=== PATIENT | female | born 2000 | race Caucasian/White ===

== ENCOUNTER 2020-09-13 20:36 | Emergency (ER) | payer OTHER ==
[2020-09-13 20:41] VITALS: BP 140/89
--- NOTE | 2020-09-13 20:54 | ED Physician Documentation ---
History of Present Illness - Stated complaint Stated Complaint: FEMALE /HEADACHE/BLOOD IN URINE - Chief complaint Chief Complaint: UTI - Additonal information Additional information: 20-year-old female presents emergency department for evaluation of suspected urinary tract infection. Reports that for nearly 2 days now she has had some mild discomfort when urinating and feels like she does not fully empty her bladder. Stated that 2 days ago (before she started her menses) she noted that there were some small drops of blood in her urine after micturation. She is also going more frequently than normal. She does endorse some low back pain. No fevers vomiting. no hx of renal stones or pyelo Review of Systems Constitutional: denies: Fever Eyes: reports: Reviewed and negative Ears: reports: Reviewed and negative Nose: reports: Reviewed and negative Throat: reports: Reviewed and negative Cardiac: reports: Reviewed and negative Respiratory: reports: Reviewed and negative GI: reports: Abdominal Pain. 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 : None HEENT: None Psych: None Musculoskeletal: None Derm: None - Past Surgical History Past Surgical History: No - Present Medications Home Medications: Ambulatory Orders Medication Instructions Recorded Confirmed cephALEXin [Keflex] 500 mg PO BID #14 09/13/20 metroNIDAZOLE [Flagyl] 500 mg PO BID #14 09/13/20 - Allergies Allergies/Adverse Reactions: Allergies Allergy/AdvReac Type Severity Reaction Status Date / Time No Known Drug Allergies Allergy Verified 09/13/20 20:39 - Social History Does the pt smoke?: Yes Smoking Status: Current every day smoker Does the pt drink ETOH?: Yes Does the pt have substance abuse?: No - Immunizations Immunizations are current?: Yes - POLST Patient has POLST: No PD ED PE NORMAL - Neck Neck: Supple, no meningeal sign, No adenopathy - Respiratory Respiratory: No respiratory distress - Abdomen Abdomen: Normal bowel sounds, Soft. No: Non tender (Mild suprapubic tenderness without guarding or rebound.) - Back Back: No: No CVA TTP - Derm Derm: Normal color, Warm and dry, No rash - Extremities Extremities: No tenderness to palpate, Normal ROM s pain Results - Vitals Vitals: Vital Signs - 24 hr 02/24/21 02/24/21 20:39 20:53 Temperature 37.0 C Heart Rate 100 Respiratory 18 15 Rate Blood Pressure 140/89 H O2 Saturation 100 Oxygen O2 Source Room air - Labs Labs: Laboratory Tests 09/13/20 20:45 Urine Color COLORLESS Urine Clarity CLEAR Urine pH 6.5 Ur Specific [place] <=1.005 Urine Protein NEGATIVE Urine Glucose (UA) NEGATIVE Urine Ketones NEGATIVE Urine Occult Blood NEGATIVE Urine Nitrite NEGATIVE Urine Bilirubin NEGATIVE Urine Urobilinogen 0.2 (NORMAL) Ur Leukocyte Esterase NEGATIVE Ur Microscopic Review NOT INDICATED Urine Culture Comments NOT INDICATED Urine HCG, Qual NEGATIVE PD MEDICAL DECISION MAKING - ED course Complexity details: reviewed results, re-evaluated patient, considered mita garrett d/w patient ED course: 20-year-old female presents the emergency department for evaluation of 2 days of dysuria frequency and mild hematuria. She does have some mild suprapubic tenderness on exam. There is no flank pain CVA tenderness or vomiting. Her urine appears very dilute and does not show signs of infection but given symptoms we will treat empirically. Patient will be placed on Keflex twice a day for 1 week. She is also requesting a prescription for Flagyl as she has symptoms that she feels are consistent with bacterial vaginosis. GC screening is pending on her urine. emergent return precautions discussed Departure - Departure Disposition: 01 Home, Self Care Clinical Impression: Dysuria Condition: Stable Record reviewed to determine appropriate education?: Yes Prescriptions: metroNIDAZOLE [Flagyl] 500 mg PO BID #14 cephALEXin [Keflex] 500 mg PO BID #14 Comments: Your urine did not show signs of infection but we are going to treat you with an antibiotic called Keflex as yoru symptoms are very suggestive of a urinary infection. As you also discussed concerns you may have bacterial vaginosis I have also prescribed Flagyl to help treat this. We are screening your urine for chlamydia and gonorrhea. We will notify you only if the results are positive. I do recommend that you abstain from any sexual activity until you complete the full course of these antibiotics. Return to the emergency department if your symptoms are worsening
[2020-09-13 21:03] LABS: BILIRUBIN,URINE NEGATIVE (NEGATIVE); GLUCOSE, URINE (UA) NEGATIVE (NEGATIVE); KETONES,URINE (UA) NEGATIVE (NEGATIVE); LEUKOCYTE ESTERASE, URINE NEGATIVE (NEGATIVE); NITRITE,URINE NEGATIVE (NEGATIVE); OCCULT BLOOD,URINE NEGATIVE (NEGATIVE); PH,URINE 6.5 PH (5.0-7.5); PROTEIN,URINE NEGATIVE (NEGATIVE); UROBILINOGEN,URINE 0.2 (NORMAL) E.U./dL (NORMAL)
[2020-09-13 21:06] LABS: CLARITY,URINE CLEAR (CLEAR); HCG UR QUAL NEGATIVE
[2020-09-13 23:34] LABS: TRICHOMONAS VAGINALIS DNA NEGATIVE (NEGATIVE)
== END 2020-09-13 22:09 | disposition home or self-care (01) ==
LOC: ED 20:36
DX: R30.0 Dysuria (principal); R31.9 Hematuria, unspecified; F17.200 Nicotine dependence, unspecified, uncomplicated
CPT/HCPCS: 81001; 81003; 81025; 87086; 87491; 87591; 87661; 99283; 99284

== ENCOUNTER 2020-10-25 | Emergency (ER) | payer OTHER ==
--- NOTE | 2020-10-25 01:29 | ED Physician Documentation ---
History of Present Illness - Stated complaint Stated Complaint: F - Chief complaint Chief Complaint: General - History obtained from History obtained from: Patient - Additonal information Additional information: 20-year-old woman presents with herpes outbreak in the genital area. She is declining exam and states that she was recently tested for other STIs. Has no other complaints at this time. No urinary symptoms. Review of Systems Constitutional: denies: Fever : denies: Dysuria Skin: reports: Rash PD PAST MEDICAL HISTORY - Past Medical History Past Medical History: No Cardiovascular: None Respiratory: None Neuro: None Endocrine/Autoimmune: None GI: None TABLE SAW OPERATOR: None : None HEENT: None Psych: None Musculoskeletal: None Derm: None - Past Surgical History Past Surgical History: No - Present Medications Home Medications: Ambulatory Orders Medication Instructions Recorded Confirmed Valacyclovir HCl [Valtrex] 500 mg PO BID #6 tablet 10/25/20 - Allergies Allergies/Adverse Reactions: Allergies Allergy/AdvReac Type Severity Reaction Status Date / Time No Known Drug Allergies Allergy Verified 09/13/20 20:39 - Social History Does the pt smoke?: Yes Smoking Status: Current every day smoker Does the pt drink ETOH?: Yes Does the pt have substance abuse?: No - Immunizations Immunizations are current?: Yes - POLST Patient has POLST: No PD ED PE NORMAL - Vitals Vital signs reviewed: Yes - General General: Alert and oriented X 3, No acute distress, Well developed/nourished - HEENT HEENT: Atraumatic, PERRL, EOMI - Neck Neck: Supple, no meningeal sign - Female Female : Pt declined - Derm Derm: Normal color, Warm and dry - Neuro Neuro: Alert and oriented X 3 - Psych Psych: Normal mood, Normal affect Results - Vitals Vitals: Vital Signs - 24 hr 10/25/20 10/25/20 01:05 01:26 Temperature 36.5 C 36.5 C Heart Rate 74 74 Respiratory 16 16 Rate Blood Pressure 113/74 113/74 O2 Saturation 99 99 Oxygen O2 Source Room air PD MEDICAL DECISION MAKING - ED course ED course: 20-year-old woman presents with herpes outbreak. Valtrex prescription given. Patient declined STI testing. Return precautions given. She will follow up with her primary doctor. Departure - Departure Disposition: 01 Home, Self Care Clinical Impression: Genital herpes Condition: Good Instructions: ED Herpes Simplex Virus Type 2 Prescriptions: Valacyclovir HCl [Valtrex] 500 mg PO BID #6 tablet Comments: You are seen in the emergency department for herpes outbreak. Please take your medication as prescribed. Return to the emergency department if you have any other concerns. Follow-up with your primary doctor.
--- OUTSIDE RECORDS SUMMARY | 2020-10-25 03:28 | EXTERNAL MEDICAL SUMMARY RPT | Continuity of Care Document ---
:2000 Demographics Phone Unavailable Preferred Language Dutch Marital Status Unknown Buddhist Affiliation Unknown Race Unknown Ethnic Group Unknown Author Organization [place] Address [address] [phone] Phone Care Team Providers Name Role Phone Brian Unavailable Unavailable Brian Unavailable Unavailable Problems date description facility 20200928 Other specified noninflammatory disorde rs of [facility] Procedures date description facility 20200926 [facility] date description facility 20200928 [facility] Vital Signs date measurement value source 20200926 BMI 41.0 kg/m2 20200926 BP_diastolic 59 mm[Hg] 20200926 BP_systolic 109 mm[Hg] 20200926 heart_rate 86 /min 20200926 height_metric 124.46 cm 20200926 height_standard 49 in 20200926 respiration_rate 20 /min 20200926 temperature_metric 36.83 C 20200926 temperature_standard 98.3 F 20200926 weight_metric 63.5 kg 20200926 weight_standard 139.99 lb date measurement value source 20200928 BMI 28.3 kg/m2 20200928 BP_diastolic 60 mm[Hg] 20200928 BP_systolic 100 mm[Hg] 20200928 heart_rate 100 /min 20200928 height_metric 149.86 cm 20200928 height_standard 59 in 20200928 weight_metric 28.8 kg 20200928 weight_standard 63.5 lb Social History date description facility [id number]
--- OUTSIDE RECORDS SUMMARY | 2020-10-25 03:28 | EXTERNAL MEDICAL SUMMARY RPT | Continuity of Care Document ---
:2000 Demographics Phone Unavailable Preferred Language Mozambican Marital Status Unknown Samaritan Affiliation Unknown Race Unknown Ethnic Group Unknown Author Organization [place] Address [address] [phone] Phone Care Team Providers Name Role Phone Brian Unavailable Unavailable Brian Unavailable Unavailable Problems date description facility 20200928 Other specified noninflammatory disorde rs of [facility] Procedures date description facility 20200926 [facility] date description facility 20200928 [facility] Vital Signs date measurement value source 20200926 [...] 63.5 lb Social History date description facility [id number]
== END 2020-10-25 01:31 | disposition home or self-care (01) ==
CPT/HCPCS: 99282; 99283

== ENCOUNTER 2020-11-24 22:15 | Emergency (ER) | payer OTHER ==
--- OUTSIDE RECORDS SUMMARY | 2020-11-24 22:20 | EXTERNAL MEDICAL SUMMARY RPT | Continuity of Care Document ---
:2000 Demographics Phone Unavailable Preferred Language Anguillan Marital Status Unknown Temple Affiliation Unknown Race Unknown Ethnic Group Unknown Author Organization [place] Address [address] [phone] Phone Care Team Providers Name Role Phone Brian Unavailable Unavailable Brian Unavailable Unavailable Medications date description facility 20201106 medroxyprogesterone acetate 150 MG/ML I [facility] Suspension 20200930 Clotrimazole 10 MG/ML Vaginal Cream Is [facility] Problems date description facility 20201106 Encounter for contraceptive management, unspecified [facility] 20200928 Other specified noninflammatory disorde rs of [facility] Procedures date description facility 20201106 [facility] 20201106 Finding [facility] [id number] Diagnosis [facility] 20201009 [facility] [id number] [facility] [id number] [facility] Vital Signs date measurement value source 20200926 weight_standard 139.99 lb 20200926 weight_metric 63.5 kg 20200926 temperature_standard 98.3 F 20200926 temperature_metric 36.83 C 20200926 respiration_rate 20 /min 20200926 height_standard 49 in 20200926 height_metric 124.46 cm 20200926 heart_rate 86 /min 20200926 BP_systolic 109 mm[Hg] 20200926 BP_diastolic 59 mm[Hg] 20200926 BMI 41.0 kg/m2 20200928 weight_standard 63.5 lb 20200928 weight_metric 28.8 kg 20200928 height_standard 59 in 20200928 height_metric 149.86 cm 20200928 heart_rate 100 /min 20200928 BP_systolic 100 mm[Hg] [id number] BP_diastolic 60 mm[Hg] 20200928 BMI 28.3 kg/m2 20201106 weight_standard 62.82 lb 20201106 weight_metric 28.5 kg 20201106 temperature_standard 99.1 F 20201106 temperature_metric 37.28 C 20201106 height_standard 59 in 20201106 height_metric 149.86 cm 20201106 heart_rate 83 /min 20201106 BP_systolic 100 mm[Hg] 20201106 BP_diastolic 60 mm[Hg] 20201106 BMI 27.9 kg/m2
--- OUTSIDE RECORDS SUMMARY | 2020-11-24 22:23 | EXTERNAL MEDICAL SUMMARY RPT | Continuity of Care Document ---
:2000 Demographics Phone Unavailable Preferred Language Burundian Marital Status Unknown Restorationism Affiliation Unknown Race Unknown Ethnic Group Unknown Author Organization [place] Address [address] [phone] Phone Care Team Providers Name Role Phone Brian Unavailable Unavailable Brian Unavailable Unavailable Medications date description facility 20201106 medroxyprogesterone acetate 150 MG/ML I [facility] Suspension 20200930 Clotrimazole 10 MG/ML Vaginal Cream Is [facility] Problems date description facility 20201106 Encounter for contraceptive management, unspecified [facility] 20200928 Other specified noninflammatory disorde rs of [facility] Procedures date description facility 20201106 [facility] 20201106 [facility] [id number] Diagnosis [facility] 20201009 [facility] [id number] [facility] [id number] [facility] Vital Signs date measurement value source [...] heart_rate 100 /min 20200928 BP_systolic 100 mm[Hg] [id number] BP_diastolic 60 mm[Hg] 20200928 BMI 28.3 kg/m2 20201106 weight_standard 62.82 lb 20201106 weight_metric 28.5 kg 20201106 temperature_standard 99.1 F 20201106 temperature_metric 37.28 C 20201106 height_standard 59 in 20201106 height_metric 149.86 cm 20201106 heart_rate 83 /min 20201106 BP_systolic 100 mm[Hg] 20201106 BP_diastolic 60 mm[Hg] 20201106 BMI 27.9 kg/m2
[2020-11-24 22:25] VITALS: BP 122/62
--- NOTE | 2020-11-24 22:56 | ED Physician Documentation ---
PD HPI FEMALE - Stated complaint Stated Complaint: F - Chief complaint Chief Complaint: UTI - History obtained from History obtained from: Patient, Family - History of Present Illness Timing - onset: How many days ago (3) Timing - duration: Days (3) Timing - details: Gradual onset, Still present Associated symptoms: Genital sore/lesion Contributing factors: Sexually active. 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 She states that she is having this on the labia and up into the crack of her buttocks. She has had this 3 times previously she does not have medication at home she has most recently been seen here in the emergency department in August for herpes. She has taken valacyclovir previously.She states that her is also currently having symptoms. Review of Systems Constitutional: denies: Fever Respiratory: denies: Cough GI: denies: Vomiting : denies: Dysuria, Frequency, Discharge Skin: reports: Rash Musculoskeletal: denies: Neck pain, Back pain, Extremity pain PD PAST MEDICAL HISTORY - Past Medical History Past Medical History: Yes Cardiovascular: None Respiratory: None Neuro: None Endocrine/Autoimmune: None GI: None SHEET METAL INSULATOR: None, Other : None HEENT: None Psych: None Musculoskeletal: None Derm: None Other Past Medical History: genital herpes - Past Surgical History Past Surgical History: No - Present Medications Home Medications: Ambulatory Orders Medication Instructions Recorded Confirmed Valacyclovir HCl [Valtrex] 1,000 mg PO TID #21 tablet 11/24/20 - Allergies Allergies/Adverse Reactions: Allergies Allergy/AdvReac Type Severity Reaction Status Date / Time No Known Drug Allergies Allergy Verified 11/24/20 22:25 - Social History Does the pt smoke?: Yes Smoking Status: Current every day smoker Does the pt drink ETOH?: Yes Does the pt have substance abuse?: No - Immunizations Immunizations are current?: Yes - POLST Patient has POLST: No PD ED PE NORMAL - Vitals Vital signs reviewed: Yes (normal ) - General General: Alert and oriented X 3, No acute distress, Well developed/nourished - HEENT HEENT: Atraumatic, PERRL, EOMI - Respiratory Respiratory: No respiratory distress - Derm Derm: Normal color, Warm and dry - Extremities Extremities: No deformity - Neuro Neuro: Alert and oriented X 3, chair caner 2-12 intact, No sensory deficit, Normal speech Eye Opening: Spontaneous Motor: Obeys Commands Verbal: Oriented GCS Score: 15 - Psych Psych: Normal mood, Normal affect Results - Vitals Vitals: Vital Signs - 24 hr 11/24/20 22:19 Temperature 97.6 C H Heart Rate 99 Respiratory 16 Rate Blood Pressure 122/62 O2 Saturation 100 Oxygen O2 Source Room air PD MEDICAL DECISION MAKING - ED course Complexity details: reviewed old records, reviewed results, re-evaluated patient, considered differential, d/w patient, d/w family ED course: 20-year-old female with a history of herpes was given valacyclovir [address] her on a course and she will follow up with her primary. Departure - Departure Disposition: 01 Home, Self Care Clinical Impression: Genital herpes Qualifiers: Herpes simplex infection site: vulvovaginitis Qualified Code(s): A60.04 - Herpesviral vulvovaginitis Condition: Stable Instructions: ED Herpes Simplex Virus Type 2 Follow-Up: BENOIT SEGUNDO NP [Primary Care Provider] - Prescriptions: Valacyclovir HCl [Valtrex] 1,000 mg PO TID #21 tablet
[2020-11-24] MEDS ORDERED: valACYclovir 500 MG TABLET PO STA (22:58)
== END 2020-11-24 23:17 | disposition home or self-care (01) ==
LOC: ED 22:15
DX: A60.04 Herpesviral vulvovaginitis (principal); F17.200 Nicotine dependence, unspecified, uncomplicated
CPT/HCPCS: 99282; 99284; A9270

== ENCOUNTER 2020-12-04 09:52 | Emergency (ER) | payer OTHER ==
--- OUTSIDE RECORDS SUMMARY | 2020-12-04 09:56 | EXTERNAL MEDICAL SUMMARY RPT | Continuity of Care Document ---
:2000 Demographics Phone Unavailable Preferred Language Djiboutian Marital Status Unknown Christian Affiliation Unknown Race Unknown Ethnic Group Unknown Author Organization [place] Address [address] [phone] Phone Care Team Providers Name Role Phone Brian Unavailable Unavailable Brian Unavailable Unavailable Medications date description facility 20201106 medroxyprogesterone acetate 150 MG/ML I [facility] Suspension 20200930 Clotrimazole 10 MG/ML Vaginal Cream Is [facility] Problems date description facility 20201106 Encounter for contraceptive management, unspecified [facility] 20200928 Other specified noninflammatory disorde rs of [facility] Procedures date description facility 20201106 [facility] 20201106 Finding [facility] [id number] Diagnosis [facility] 20201009 [facility] [id number] [facility] [id number] [facility] Vital Signs date measurement value [...] heart_rate 100 /min 20200928 BP_systolic 100 mm[Hg] 73113011 BP_diastolic 60 mm[Hg] 20200928 BMI 28.3 kg/m2 20201106 weight_standard 62.82 lb 20201106 weight_metric 28.5 kg 20201106 temperature_standard 99.1 F 20201106 temperature_metric 37.28 C 20201106 height_standard 59 in 20201106 height_metric 149.86 cm 20201106 heart_rate 83 /min 20201106 BP_systolic 100 mm[Hg] 20201106 BP_diastolic 60 mm[Hg] 20201106 BMI 27.9 kg/m2
[2020-12-04 10:16] LABS: BILIRUBIN,URINE NEGATIVE (NEGATIVE); GLUCOSE, URINE (UA) NEGATIVE (NEGATIVE); KETONES,URINE (UA) NEGATIVE (NEGATIVE); LEUKOCYTE ESTERASE, URINE NEGATIVE (NEGATIVE); NITRITE,URINE NEGATIVE (NEGATIVE); OCCULT BLOOD,URINE NEGATIVE (NEGATIVE); PROTEIN,URINE NEGATIVE (NEGATIVE); UROBILINOGEN,URINE 0.2 (NORMAL) E.U./dL (NORMAL)
--- OUTSIDE RECORDS SUMMARY | 2020-12-04 10:21 | EXTERNAL MEDICAL SUMMARY RPT | Continuity of Care Document ---
:2000 Demographics Phone Unavailable Preferred Language Slovak Marital Status Unknown Adventist Affiliation Unknown Race Unknown Ethnic Group Unknown Author Organization [place] Address [address] [phone] Phone Care Team Providers Name Role Phone Brian, Luda Le Unavailable Unavailable Brian, Luda Le Unavailable Unavailable Medications date description facility 20201106 medroxyprogesterone acetate 150 MG/ML I [facility] Suspension 20200930 Clotrimazole 10 MG/ML Vaginal Cream Is [facility] Problems date description facility 20201106 Encounter for contraceptive management, unspecified [facility] 20200928 Other specified noninflammatory disorde rs of [facility] Procedures date description facility 20201106 [facility] 20201106 Finding [facility] [id number] Diagnosis [facility] [id number] [facility] [id number] [facility] [id number] [facility] Vital Signs date measurement value source 20200926 [...] heart_rate 100 /min 20200928 BP_systolic 100 mm[Hg] 42640930 BP_diastolic 60 mm[Hg] 20200928 BMI 28.3 kg/m2 20201106 weight_standard 62.82 lb 20201106 weight_metric 28.5 kg 20201106 temperature_standard 99.1 F 20201106 temperature_metric 37.28 C 20201106 height_standard 59 in 20201106 height_metric 149.86 cm 20201106 heart_rate 83 /min 20201106 BP_systolic 100 mm[Hg] 20201106 BP_diastolic 60 mm[Hg] 20201106 BMI 27.9 kg/m2
[2020-12-04 10:29] LABS: CLARITY,URINE CLEAR (CLEAR)
[2020-12-04 10:32] LABS: HCG UR QUAL NEGATIVE
[2020-12-04 10:45] LABS: BACTERIA,URINE Moderate /HPF (None Seen); RBC,URINE 0-5 /HPF (0-5); SQUAMOUS EPITHELIAL CELL,UR MANY Squamous (<= Few); WBC,URINE 0-3 /HPF (0-5)
--- NOTE | 2020-12-04 12:34 | ED Physician Documentation ---
History of Present Illness - Stated complaint Stated Complaint: FEMALE - Chief complaint Chief Complaint: General - History obtained from History obtained from: Patient - Additonal information Additional information: 20-year-old woman with past medical history of bacterial vaginosis presents with pain with sex over the past several months, progressively worsening. She also has malodorous discharge from the vagina but says that she was tested for sexually transmitted infections recently and is refusing STI testing at this time. Patient also refusing CLINICAL RN exam. She denies fever, abdominal pain, dysuria, increased frequency. She does say that she had hematuria months ago but not today. Patient has an OB appointment on Friday. Review of Systems Constitutional: denies: Fever, Chills : denies: Dysuria, Frequency Musculoskeletal: denies: Back pain PD PAST MEDICAL HISTORY - Past Medical History Past Medical History: No Cardiovascular: None Respiratory: None Neuro: None Endocrine/Autoimmune: None GI: None CLINICAL RN: None, Other : None HEENT: None Psych: None Musculoskeletal: None Derm: None - Past Surgical History Past Surgical History: No - Present Medications Home Medications: Ambulatory Orders Medication Instructions Recorded Confirmed metroNIDAZOLE 0.75% GEL [Flagyl 1 applic TOP QPM 5 Days #45 gm 12/04/20 Gel] - Allergies Allergies/Adverse Reactions: Allergies Allergy/AdvReac Type Severity Reaction Status Date / Time No Known Drug Allergies Allergy Verified 12/04/20 09:56 - Social History Does the pt smoke?: No Smoking Status: Never smoker Does the pt drink ETOH?: No Does the pt have substance abuse?: No - Immunizations Immunizations are current?: No - POLST Patient has POLST: No PD ED PE NORMAL - Vitals Vital signs reviewed: Yes - General General: Alert and oriented X 3, No acute distress, Well developed/nourished - HEENT HEENT: Atraumatic, PERRL, EOMI - Abdomen Abdomen: Non tender, Non distended - Female Female : Pt declined - Back Back: No CVA TTP - Extremities Extremities: No deformity Results - Vitals Vitals: Vital Signs - 24 hr 12/04/20 12/04/20 12/04/20 09:56 10:15 12:39 Temperature 37 C Heart Rate 96 99 93 Respiratory 16 16 16 Rate Blood Pressure 119/68 114/90 H 121/69 O2 Saturation 99 96 97 Oxygen O2 Source Room air - Labs Labs: Laboratory Tests 12/04/20 12/04/20 10:00 10:00 Urine Color YELLOW Urine Clarity CLEAR Urine pH 6.0 Ur Specific [place] 1.020 Urine Protein NEGATIVE Urine Glucose (UA) NEGATIVE Urine Ketones NEGATIVE Urine Occult Blood NEGATIVE Urine Nitrite NEGATIVE Urine Bilirubin NEGATIVE Urine Urobilinogen 0.2 (NORMAL) Ur Leukocyte Esterase NEGATIVE Urine RBC 0-5 Urine WBC 0-3 Ur Squamous Epith Cells MANY Squamous H Urine Bacteria Moderate H Urine Culture Comments NOT INDICATED Urine HCG, Qual NEGATIVE PD MEDICAL DECISION MAKING - ED course ED course: 20-year-old woman presents with concerns that she has bacterial vaginosis, also with Dyspareunia. Declining vaginal exam, STI testing. agreed to self swab for BV. Education given about adequate lubrication during sex. She will follow up with OB this week. Return precautions given. Departure - Departure Clinical Impression: Bacterial vaginosis, Dyspareunia Condition: Good Instructions: ED Vaginosis Bacterial Prescriptions: metroNIDAZOLE 0.75% GEL [Flagyl Gel] 1 applic TOP QPM 5 Days #45 gm Comments: You were seen in the emergency department for dyspareunia and foul-smelling discharge. Dyspareunia means that you are having painful intercourse. Make sure that you are well with lubricated prior to sex and use water-based lubricant from your local pharmacy every time you have sex. Do not use a vaginal douche and make sure that you get a good probiotic diet with yogurt, kefir, or pickled vegetables like kimchee. Follow-up with your FILM SPOOLER this week. Return to the emergency department you have any new or worsening symptoms or other concerns.
[2020-12-04 12:40] VITALS: BP 121/69
[2020-12-04 15:00] LABS: BACTERIAL VAGINOSIS DNA NEGATIVE (NEGATIVE); CANDIDA GLABRATA DNA NEGATIVE (NEGATIVE); CANDIDA GROUP DNA NEGATIVE (NEGATIVE); CANDIDA KRUSEI DNA NEGATIVE (NEGATIVE); TRICHOMONAS VAGINALIS DNA NEGATIVE (NEGATIVE)
[2020-12-04 22:11] LABS: CHLAMYDIA TRACHOMATIS DNA NEGATIVE (NEGATIVE); NEISSERIA GONORRHOEAE DNA NEGATIVE (NEGATIVE); TRICHOMONAS VAGINALIS DNA NEGATIVE (NEGATIVE)
== END 2020-12-04 13:32 | disposition home or self-care (01) ==
LOC: ED 09:52
DX: N76.0 Acute vaginitis (principal); N94.10 Unspecified dyspareunia
CPT/HCPCS: 81001; 81025; 87086; 87210; 87491; 87591; 87661; 87801; 99283; 99284

== ENCOUNTER 2021-02-12 18:49 | Emergency (ER) | payer OTHER ==
[2021-02-12 18:56] VITALS: BP 102/63
--- NOTE | 2021-02-12 19:11 | ED Physician Documentation ---
PD HPI HEENT - Stated complaint Stated Complaint: SORE THROAT,COUGHING,LUIS - Chief complaint Chief Complaint: Heent - History obtained from History obtained from: Patient - Additional information Additional information: For 4 days with stuffy nose, sore throat, and minimally productive cough. No fevers, chills, or body aches. No headaches. Her employer would like her to have a Covid test. She also thinks she has BV and would like a prescription for Flagyl. Review of Systems Constitutional: denies: Fever, Chills Ears: denies: Ear pain Nose: reports: Rhinorrhea / runny nose Throat: reports: Sore throat Respiratory: reports: Cough. denies: Dyspnea PD PAST MEDICAL HISTORY - Past Medical History Past Medical History: No Cardiovascular: None Respiratory: None Neuro: None Endocrine/Autoimmune: None GI: None SOLE CONDITIONER: None, Other : None HEENT: None Psych: None Musculoskeletal: None Derm: None - Past Surgical History Past Surgical History: No - Present Medications Home Medications: Ambulatory Orders Medication Instructions Recorded Confirmed guaiFENesin/CODEINE [Robitussin AC] 5 - 10 ml PO Q6H PRN #120 ml 02/12/21 metroNIDAZOLE [Flagyl] 500 mg PO BID #14 tablet 02/12/21 - Allergies Allergies/Adverse Reactions: Allergies Allergy/AdvReac Type Severity Reaction Status Date / Time No Known Drug Allergies Allergy Verified 02/12/21 18:53 - Social History Does the pt smoke?: No Smoking Status: Never smoker Does the pt drink ETOH?: Yes Does the pt have substance abuse?: No - Immunizations Immunizations are current?: No - POLST Patient has POLST: No PD ED PE NORMAL - Vitals Vital signs reviewed: Yes - General General: Alert and oriented X 3, No acute distress - HEENT HEENT: Ears normal, Moist mucous membranes, Pharynx benign - Neck Neck: Supple, no meningeal sign, No bony TTP - Cardiac Cardiac: RRR, No murmur - Respiratory Respiratory: No respiratory distress, Clear bilaterally - Abdomen Abdomen: Non tender - Back Back: No CVA TTP, No spinal TTP - Derm Derm: Normal color, Warm and dry - Extremities Extremities: No edema, No calf tenderness / cord - Neuro Neuro: Alert and oriented X 3, Normal speech Results - Vitals Vitals: Vital Signs - 24 hr 02/12/21 18:53 Temperature 36.9 C Heart Rate 89 Respiratory 16 Rate Blood Pressure 102/63 O2 Saturation 97 Oxygen O2 Source Room air PD MEDICAL DECISION MAKING - ED course ED course: 20-year-old woman with viral syndrome, really not consistent with Covid but needs a Covid test and this is done. Advised to home quarantine until results are available. She would like a prescription for Flagyl and something for the cough as well. Departure - Departure Disposition: 01 Home, Self Care Clinical Impression: Bacterial vaginosis, Viral syndrome Condition: Good Record reviewed to determine appropriate education?: Yes Instructions: ED Viral Syndrome Prescriptions: metroNIDAZOLE [Flagyl] 500 mg PO BID #14 tablet guaiFENesin/CODEINE [Robitussin AC] 5 - 10 ml PO Q6H PRN #120 ml PRN Reason: Cough Comments: You have a Covid test pending. You need to self quarantine until the result is done and negative. Do not leave your house. Do not get near anybody. The results should be done in 48 to 72 hours. We will call with a positive result, the fastest way to get a negative result for confirmation though is to go to the hospital website at [email or web address], click on the my [employer] tab and sign up for the patient portal. If any friends or family get sick and would like to have a Covid test done, but do not have signs or symptoms that would necessitate being hospitalized, we encourage testing through our coronavirus swabbing station, call [phone] to schedule an appointment. Forms: Activity restrictions
== END 2021-02-12 19:23 | disposition home or self-care (01) ==
LOC: ED 18:49
DX: N76.0 Acute vaginitis (principal); B34.9 Viral infection, unspecified; Z20.822 Contact with and (suspected) exposure to COVID-19
CPT/HCPCS: 99283; 99284

== ENCOUNTER 2021-04-09 16:33 | Emergency (ER) | payer OTHER ==
[2021-04-09 17:01] VITALS: BP 112/66
[2021-04-09 18:21] LABS: BILIRUBIN,URINE NEGATIVE (NEGATIVE); GLUCOSE, URINE (UA) NEGATIVE (NEGATIVE); KETONES,URINE (UA) NEGATIVE (NEGATIVE); LEUKOCYTE ESTERASE, URINE NEGATIVE (NEGATIVE); NITRITE,URINE NEGATIVE (NEGATIVE); OCCULT BLOOD,URINE NEGATIVE (NEGATIVE); PH,URINE 6.5 PH (5.0-7.5); PROTEIN,URINE NEGATIVE (NEGATIVE); UROBILINOGEN,URINE 0.2 (NORMAL) E.U./dL (NORMAL)
[2021-04-09 18:23] LABS: CLARITY,URINE CLEAR (CLEAR); HCG UR QUAL NEGATIVE
--- NOTE | 2021-04-09 18:59 | ED Physician Documentation ---
History of Present Illness - Stated complaint Stated Complaint: EAR PX - Chief complaint Chief Complaint: Heent - History obtained from History obtained from: Patient - History of Present Illness Timing: How many weeks ago (2) Pain level max: 5 Pain level now: 3 - Additonal information Additional information: 20-year-old female presents to the emergency department multiple complaints. The first is intermittent right ear pain for 2 weeks. She states that it is worse with palpation and better with rest. No drainage. No fevers. No chills. No rhinorrhea or congestion. Her next complaint is that she feels full quickly after eating and feels very tired. She is requesting to be checked for diabetes. Does not have any abdominal pain. Nothing makes it better or worse. She also states that she occasionally has bleeding during intercourse. Denies any STD exposure. No vaginal discharge, bleeding or itching currently. Review of Systems Constitutional: denies: Fever, Chills GI: denies: Vomiting, Diarrhea Skin: denies: Rash Musculoskeletal: denies: Neck pain, Back pain Neurologic: denies: Headache PD PAST MEDICAL HISTORY - Past Medical History Past Medical History: Yes Cardiovascular: None Respiratory: None Neuro: None Endocrine/Autoimmune: None GI: None EDUCATIONAL FUNDRAISING DIRECTOR: None, Other : None HEENT: None Psych: None Musculoskeletal: None Derm: None - Past Surgical History Past Surgical History: No - Present Medications Home Medications: Ambulatory Orders Medication Instructions Recorded Confirmed Neomycin/Polymyx/Hc Otic Drops 4 drops OT TID #10 ml 04/09/21 [Cortisporin Ear Susp] - Allergies Allergies/Adverse Reactions: Allergies Allergy/AdvReac Type Severity Reaction Status Date / Time No Known Drug Allergies Allergy Verified 04/09/21 16:56 - Social History Does the pt smoke?: No Smoking Status: Never smoker Does the pt drink ETOH?: Yes Does the pt have substance abuse?: No - Immunizations Immunizations are current?: No - POLST Patient has POLST: No PD ED PE NORMAL - Vitals Vital signs reviewed: Yes - General General: Alert and oriented X 3, No acute distress - HEENT HEENT: Moist mucous membranes, Other (B TM normal. L ear normal. R ear canal with erythema and swelling. no drainage) - Neck Neck: Supple, no meningeal sign - Cardiac Cardiac: RRR - Respiratory Respiratory: No respiratory distress, Clear bilaterally - Abdomen Abdomen: Soft, Non tender, Non distended - Female Female : Pt declined - Derm Derm: Warm and dry - Extremities Extremities: No edema - Neuro Neuro: Alert and oriented X 3 Results - Vitals Vitals: Oxygen O2 Source Room air - Labs Labs: Laboratory Tests 04/09/21 04/09/21 04/09/21 18:05 18:10 18:10 POC Whole Bld Glucose 70 Urine Color Urine Clarity Urine pH Ur Specific [place] Urine Protein Urine Glucose (UA) Urine Ketones Urine Occult Blood Urine Nitrite Urine Bilirubin Urine Urobilinogen Ur Leukocyte Esterase Ur Microscopic Review Urine Culture Comments Urine HCG, Qual C. glabrata (PCR) NEGATIVE C. krusei (PCR) NEGATIVE Ita species DNA NEGATIVE Chlam trachomat DNA PCR NEGATIVE N.gonorrhoeae DNA (PCR) NEGATIVE T. vaginalis (PCR) NEGATIVE NEGATIVE Bact Vaginosis (PCR) NEGATIVE 04/09/21 18:10 POC Whole Bld Glucose Urine Color YELLOW Urine Clarity CLEAR Urine pH 6.5 Ur Specific [place] 1.010 Urine Protein NEGATIVE Urine Glucose (UA) NEGATIVE Urine Ketones NEGATIVE Urine Occult Blood NEGATIVE Urine Nitrite NEGATIVE Urine Bilirubin NEGATIVE Urine Urobilinogen 0.2 (NORMAL) Ur Leukocyte Esterase NEGATIVE Ur Microscopic Review NOT INDICATED Urine Culture Comments NOT INDICATED Urine HCG, Qual NEGATIVE C. glabrata (PCR) C. krusei (PCR) Ita species DNA Chlam trachomat DNA PCR N.gonorrhoeae DNA (PCR) T. vaginalis (PCR) Bact Vaginosis (PCR) PD MEDICAL DECISION MAKING - ED course Complexity details: reviewed results, considered differential, d/w patient ED course: Patient with a mild right acute otitis externa. No evidence of otitis media bilaterally. Blood sugar is normal. Vaginal swabs are normal. We will have her follow-up with her doctor for further care of her fatigue after eating. Abdomen is soft, nontender nondistended on exam. Patient counseled regarding signs and symptoms for which I believe and urgent re-evaluation would be necessary. Patient with good understanding of and agreement to plan and is comfortable going home at this time This document was made in part using voice recognition software. While efforts are made to proofread this document, sound alike and grammatical errors may occur. Departure - Departure Disposition: 01 Home, Self Care Clinical Impression: Otitis externa Qualifiers: Otitis externa type: unspecified type Chronicity: acute Laterality: right Qualified Code(s): H60.501 - Unspecified acute noninfective otitis externa, right ear Condition: Good Instructions: ED Otitis Externa Follow-Up: your,doctor in 1 week [Other] Prescriptions: Neomycin/Polymyx/Hc Otic Drops [Cortisporin Ear Susp] 4 drops OT TID #10 ml Comments: Your prescription was sent to [facility] in [place]. Your bacterial vaginitis swabs will be back later tonight and we will call you if you require further prescriptions. Please follow-up with your doctor for your other medical issues. They may want to perform an endoscopy to evaluate your stomach for your fatigue after eating. Your blood sugar is normal today. Discharge Date/Time: 04/09/21 19:08
[2021-04-09 20:23] LABS: BACTERIAL VAGINOSIS DNA NEGATIVE (NEGATIVE); CANDIDA GLABRATA DNA NEGATIVE (NEGATIVE); CANDIDA GROUP DNA NEGATIVE (NEGATIVE); CANDIDA KRUSEI DNA NEGATIVE (NEGATIVE); TRICHOMONAS VAGINALIS DNA NEGATIVE (NEGATIVE)
[2021-04-09 22:27] LABS: CHLAMYDIA TRACHOMATIS DNA NEGATIVE (NEGATIVE); NEISSERIA GONORRHOEAE DNA NEGATIVE (NEGATIVE); TRICHOMONAS VAGINALIS DNA NEGATIVE (NEGATIVE)
== END 2021-04-09 19:08 | disposition home or self-care (01) ==
LOC: ED 16:33
DX: H60.501 Unspecified acute noninfective otitis externa, right ear (principal)
CPT/HCPCS: 81001; 81003; 81025; 87086; 87491; 87591; 87661; 87801; 99283

== ENCOUNTER 2021-11-29 20:48 | Emergency (ER) | payer OTHER ==
[2021-11-29 21:16] LABS: BILIRUBIN,URINE NEGATIVE (NEGATIVE); GLUCOSE, URINE (UA) NEGATIVE (NEGATIVE); KETONES,URINE (UA) NEGATIVE (NEGATIVE); LEUKOCYTE ESTERASE, URINE SMALL (NEGATIVE); NITRITE,URINE NEGATIVE (NEGATIVE); OCCULT BLOOD,URINE MODERATE (NEGATIVE); PROTEIN,URINE NEGATIVE (NEGATIVE); UROBILINOGEN,URINE 0.2 (NORMAL) E.U./dL (NORMAL)
[2021-11-29 21:21] LABS: BACTERIA,URINE Many /HPF (None Seen); CLARITY,URINE HAZY (CLEAR); HCG UR QUAL NEGATIVE; SQUAMOUS EPITHELIAL CELL,UR FEW Squamous (<= Few); WBC,URINE >25 /HPF (0-5)
--- NOTE | 2021-11-29 21:22 | ED Physician Documentation ---
History of Present Illness - Stated complaint Stated Complaint: FEMALE - Chief complaint Chief Complaint: UTI - Additonal information Additional information: 21-year-old female presents emergency department for evaluation of dysuria urgency and frequency. Symptoms began this AM. States her last urinary tract infection was about 3 to 4 months ago. She denies any fevers flank pain or vomiting. Denies possibility of . Patient did take a leftover antibiotic tablet prior to arrival. Review of Systems Constitutional: reports: Reviewed and negative Eyes: reports: Reviewed and negative Ears: reports: Reviewed and negative Throat: reports: Reviewed and negative Cardiac: reports: Reviewed and negative Respiratory: reports: Reviewed and negative GI: reports: Reviewed and negative : reports: Dysuria, Frequency, Hesitancy. denies: Hematuria, Discharge Skin: reports: Reviewed and negative PD PAST MEDICAL HISTORY - Past Medical History Past Medical History: No Cardiovascular: None Respiratory: None Neuro: None Endocrine/Autoimmune: None GI: None DIRECTOR PAYMENT: None : None HEENT: None Psych: None Musculoskeletal: None Derm: None - Past Surgical History Past Surgical History: No - Present Medications Home Medications: Ambulatory Orders Medication Instructions Recorded Confirmed Neomycin/Polymyx/Hc Otic Drops 4 drops OT TID #10 ml 04/09/21 [Cortisporin Ear Susp] Cefpodoxime Proxetil [Vantin] 100 mg PO Q12H #14 tablet 11/29/21 - Allergies Allergies/Adverse Reactions: Allergies Allergy/AdvReac Type Severity Reaction Status Date / Time No Known Drug Allergies Allergy Verified 04/09/21 16:56 - Social History Does the pt smoke?: No Smoking Status: Never smoker Does the pt drink ETOH?: Yes Does the pt have substance abuse?: No - Immunizations Immunizations are current?: No - POLST Patient has POLST: No PD ED PE NORMAL - General General: Alert and oriented X 3, No acute distress - HEENT HEENT: PERRL - Cardiac Cardiac: RRR, No murmur - Respiratory Respiratory: Clear bilaterally - Abdomen Abdomen: Normal bowel sounds, Soft. No: Non tender (Mild suprapubic tenderness. No flank or CVA tenderness) - Back Back: No CVA TTP, No spinal TTP - Derm Derm: Warm and dry - Extremities Extremities: No deformity - Neuro Neuro: Alert and oriented X 3 Eye Opening: Spontaneous Motor: Obeys Commands Verbal: Oriented GCS Score: 15 - Psych Psych: Normal mood Results - Vitals Vitals: Vital Signs - 24 hr 11/29/21 20:53 Temperature 36.5 C Heart Rate 75 Respiratory 16 Rate Blood Pressure 123/65 O2 Saturation 100 Oxygen O2 Source Room air - Labs Labs: Laboratory Tests 11/29/21 21:10 Urine Color YELLOW Urine Clarity HAZY Urine pH 6.0 Ur Specific [place] 1.020 Urine Protein NEGATIVE Urine Glucose (UA) NEGATIVE Urine Ketones NEGATIVE Urine Occult Blood MODERATE H Urine Nitrite NEGATIVE Urine Bilirubin NEGATIVE Urine Urobilinogen 0.2 (NORMAL) Ur Leukocyte Esterase SMALL H Urine RBC 11-25 H Urine WBC >25 H Ur Squamous Epith Cells FEW Squamous Urine Bacteria Many H Ur Microscopic Review INDICATED Urine Culture Comments INDICATED Urine HCG, Qual NEGATIVE PD MEDICAL DECISION MAKING - ED course Complexity details: re-evaluated patient, considered differential, d/w patient ED course: 21-year-old female presents emergency department for evaluation of dysuria urgency and frequency that began this AM. UA is consistent with acute cystitis. Given the lack of flank pain fevers vomiting or CVA tenderness low suspicion for pyelonephritis. Will start patient on Vantin. First dose given here in the ER. Emergent return precautions discussed. Departure - Departure Disposition: Home, Self Care Clinical Impression: Acute cystitis Qualifiers: Hematuria presence: without hematuria Qualified Code(s): N30.00 - Acute cystitis without hematuria Condition: Stable Record reviewed to determine appropriate education?: Yes Instructions: ED UTI Cystitis Female Prescriptions: Cefpodoxime Proxetil [Vantin] 100 mg PO Q12H #14 tablet Comments: You do have a urinary tract infection. Your first dose of antibiotic is given tonight in the emergency department and a prescription for Vantin to be taken twice daily for the next week has been sent to the [facility]. With the antibiotics I would expect that your symptoms begin to markedly improve over the next 24 to 72 hours. If at any point you develop worsening symptoms, develop flank pain, fevers vomiting then please return immediately to the ER for second evaluation.
[2021-11-29] MEDS ORDERED: CEFPODOXIME PROXETIL 100 MG TABLET PO STA (21:41)
[2021-11-29 22:01] VITALS: BP 114/58
== END 2021-11-29 21:58 | disposition home or self-care (01) ==
LOC: ED 20:48
DX: N30.00 Acute cystitis without hematuria (principal)
CPT/HCPCS: 81001; 81003; 81025; 87077; 87086; 87181; 99283